=== PATIENT | male | born 1975 | race Two or more races ===

== ENCOUNTER 2019-11-19 19:58 | Emergency (ER) | payer MEDICAID ==
[~2019-11-19] VITALS: Ht 175.3 cm; Wt 102.0 kg
[2019-11-19 20:08] VITALS: BP 135/88
[2019-11-19] MEDS ORDERED: IBUPROFEN 600MG TABLET PO ONE (23:00)
== END 2019-11-19 23:58 | disposition home or self-care (01) ==
LOC: ER 19:58
DX: R09.89 Other specified symptoms and signs involving the circulatory and respiratory systems (principal)
CPT/HCPCS: 70360; 99283